=== PATIENT | male | born 1990 | race African-American/Black ===

== ENCOUNTER 2017-01-08 03:13 | Emergency (ER) | payer MEDICAID ==
[~2017-01-08] VITALS: Ht 182.9 cm; Wt 90.7 kg
[2017-01-08 03:55] LABS: Basophils # (auto) 0.1 uL; Basophils % (auto) 1.4 % (0.0-2.0); Eosinophils # (auto) 0.2 uL; Eosinophils % (auto) 2.6 % (0.0-7.0); Hematocrit 46.3 % (41.0-53.0); Hemoglobin 15.4 g/dL (13.5-17.5); Lymphocytes # (auto) 2.6 uL; Lymphocytes % (auto) 30.1 % (10.0-50.0); Mean Corpuscular Hemoglobin 31.3 pg (28.0-32.0); Mean Corpuscular Hgb Conc. 33.2 g/dL (32.0-36.0); Mean Corpuscular Volume 94.3 fL (80.0-100.0); Mean Platelet Volume 8.9 fL (7.4-10.4); Monocytes # (auto) 0.7 uL; Monocytes % (auto) 8.2 % (0.0-12.0); Neutrophils % (auto) 57.7 % (37.0-80.0); Platelet Count (auto) 305 10^3/uL (140-450); Red Cell Distribution Width 12.6 % (11.6-16.0); White Blood Cell 8.6 10^3/uL (4.4-10.8)
[2017-01-08 04:18] LABS: Albumin 3.6 g/dL (3.4-5.0); BUN/Creatinine Ratio 8.7; Bilirubin, Total 0.5 mg/dL (0.2-1.0); Calcium 8.8 mg/dL (8.5-10.1); Potassium 4.2 mmol/L (3.5-5.1); Total Protein 7.6 g/dL (6.4-8.2)
[2017-01-08] MEDS ORDERED: SODIUM CHLORIDE 0.9% 1,000 ML IV ONE (07:30)
[2017-01-08 09:02] VITALS: BP 124/86
== END 2017-01-08 09:28 | disposition home or self-care (01) ==
LOC: ER 03:13 → EDBD 03:13 → ER 09:28
DX: M79.1 Myalgia (principal); R07.9 Chest pain, unspecified; F17.210 Nicotine dependence, cigarettes, uncomplicated; F12.10 Cannabis abuse, uncomplicated; R11.2 Nausea with vomiting, unspecified; R51 Headache
CPT/HCPCS: 36415; 70450; 80053; 85025; 93005

== ENCOUNTER 2020-04-11 15:38 | Emergency (ER) | payer MEDICAID ==
[~2020-04-11] VITALS: Ht 172.7 cm; Wt 80.7 kg
[2020-04-11 15:47] VITALS: BP 98/64
== END 2020-04-11 19:24 | disposition left against medical advice (07) ==
LOC: ER 15:38 → EDBD 15:38 → ER 19:24
DX: R42 Dizziness and giddiness (principal); R53.1 Weakness; Z53.21 Procedure and treatment not carried out due to patient leaving prior to being seen by health care provider